=== PATIENT | female | born 1965 | race American Indian/Alaskan Native ===

== ENCOUNTER 2017-03-18 11:57 | Observation (INO) | payer OTHER ==
[2017-03-18 12:33] VITALS: BMI 26.2
--- NOTE | 2017-03-18 13:03 | ED PDOC ---
Arrival/HPI - General Chief Complaint: Syncope Time Seen by Provider: 03/18/17 12:39 Historian: Patient - History of Present Illness Narrative History of Present Illness (Text): 03/18/17 12:59 A 51 year old female, whose past medical history includes hypertension and hyperlipidemia, presents to the emergency department complaining of a syncopal episode prior to arrival. Patient reports while at work she felt lightheaded, which resolved for a few minutes and later returned. She then experienced a syncopal episode that lasted for less than 1 minute. At this time patient feels better. Patient notes a mild headache but denies any fever, chills, nausea, vomiting, abdominal pain, chest pain, shortness of breath or any other complaints. Time/Duration: Prior to Arrival Symptom Course: Improving Quality: Other Context: Work Past Medical History - Provider Review Nursing Documentation Reviewed: Yes - Infectious Disease Hx of Infectious Diseases: None - Cardiac Hx Cardiac Arrhythmia: Yes Hx Hypertension: Yes Hx Internal Defibrillator: Yes Other/Comment: Defibrillator. Cardiomyopathy - Gastrointestinal Hx Gall Bladder Disease: Yes Other/Comment: hernia - Psychiatric Hx Psychophysiologic Disorder: No Hx Depression: No Hx Emotional Abuse: No Hx Physical Abuse: No Hx Substance Use: No - Surgical History Hx Cardiac Catheterization: Yes Hx Cholecystectomy: Yes Other/Comment: DEFIBRILLATOR. "mass removed from chest" - Anesthesia Hx Anesthesia: Yes Hx Anesthesia Reactions: No Hx Malignant Hyperthermia: No - Suicidal Assessment Feels Threatened In Home Enviroment: No Family/Social History - Physician Review Nursing Documentation Reviewed: Yes Family/Social History: No Known Family HX Smoking Status: Never Smoked Hx Alcohol Use: No Hx Substance Use: No Allergies/Home Meds Allergies/Adverse Reactions: Allergies No Known Allergies Allergy (Verified 03/20/15 22:14) Home Medications: Home Meds Medication Instructions Recorded Confirmed Aspirin [Aspir 81] 81 mg PO DAILY 03/05/13 03/18/17 Enalapril Maleate [Enalapril] 20 mg PO DAILY 03/05/13 03/18/17 Losartan [Cozaar] 100 mg PO DAILY 03/20/15 03/18/17 Pantoprazole [Protonix] 40 mg PO DAILY 03/20/15 03/18/17 Furosemide [Lasix] 1 tab PO DAILY 03/18/17 03/18/17 Potassium Chloride [K-Dur 20 mEq 1 tab PO DAILY 03/18/17 03/18/17 ER Tab] Simvastatin [Zocor] 1 tab PO HS 03/18/17 03/18/17 Review of Systems - Physician Review All systems were reviewed & negative as marked: Yes - Review of Systems Constitutional: absent: Fevers, Night Sweats Respiratory: absent: SOB Cardiovascular: Syncope. absent: Chest Pain Gastrointestinal: absent: Abdominal Pain, Nausea, Vomiting Neurological: Headache, Other (Lightheaded) Physical Exam Vital Signs Reviewed: Yes Vital Signs Temp Pulse Resp BP Pulse Ox 03/18/17 17:10 70 17 124/82 100 03/18/17 16:40 66 18 111/68 98 03/18/17 15:19 67 18 109/65 98 03/18/17 13:21 69 18 107/64 98 03/18/17 12:40 98.2 F 73 18 105/61 98 Temperature: Afebrile Blood Pressure: Normal Pulse: Regular Respiratory Rate: Normal Appearance: Positive for: Well-Appearing, Non-Toxic, Comfortable Pain Distress: None Mental Status: Positive for: Alert and Oriented X 3 Finger Stick Blood Glucose: 97 - Systems Exam Head: Present: Atraumatic, Normocephalic Pupils: Present: PERRL Extroacular Muscles: Present: EOMI Conjunctiva: Present: Normal Mouth: Present: Moist Mucous Membranes Neck: Present: Normal Range of Motion Respiratory/Chest: Present: Clear to Auscultation, Good Air Exchange. No: Respiratory Distress, Accessory Muscle Use Cardiovascular: Present: Regular Rate and Rhythm, Normal S1, S2. No: Murmurs Abdomen: Present: Normal Bowel Sounds. No: Tenderness, Distention, Peritoneal Signs Back: Present: Normal Inspection Upper Extremity: Present: Normal Inspection. No: Cyanosis, Edema Lower Extremity: Present: Normal Inspection. No: Edema Neurological: Present: GCS=15, CN II-XII Intact, Speech Normal, Motor Func Grossly Intact, Normal Sensory Function, Normal Cerebellar Funct, Gait Normal, Memory Normal Skin: Present: Warm, Dry, Normal Color. No: Rashes Psychiatric: Present: Alert, Oriented x 3, Normal Insight, Normal Concentration Medical Decision Making ED Course and Treatment: 03/18/17 12:59 Impression: A 51 year old female presents after syncopal episode. Patient notes mild headache. r/o cardiac metabolic, intracrnial etiology Plan: -- Head CT -- Chest xray -- EKG -- Labs -- Urinalysis -- Reassess and disposition Progress Notes: EKG shows NSR at 66 BPM with nonspecific T-wave changes, no prior for comparison. Interpreted by me. Report Date : 03/18/2017 13:35:41 PROCEDURE: CT HEAD WITHOUT CONTRAST. Dictator : Jayro Moseley MD IMPRESSION: Normal CT of the Head. Report Date : 03/18/2017 13:50:54 PROCEDURE: CHEST RADIOGRAPH, 1 VIEW Dictator : Heydi Tejada MD IMPRESSION: No active pulmonary disease. 03/18/17 17:[address] neg. cxr neg. ua neg. noted mild leukoctyosis, suspect inflammatory. noted ekg changes, no previous. mendoza franscico syncope rules positive. needs admission. dr ma requests hospitalist admission. dr moss accepts. - Lab Interpretations Lab Results: 03/18/17 13:26 03/18/17 13:40 Lab Results 03/18/17 13:40: TSH 3rd Generation 1.13 03/18/17 13:40: Triglycerides 105, Cholesterol 194, LDL Cholesterol Direct 131 H , HDL Cholesterol 42 03/18/17 13:40: Sodium 136, Potassium 3.9, Chloride 102, Carbon Dioxide 23, Anion Gap 15, BUN 21, Creatinine 1.0, Est GFR ( Amer) > 60, Est GFR (Non- Af Amer) 59, Random Glucose 98, Calcium 9.2, Magnesium 2.1, Total Bilirubin 0.5 , AST 22, ALT 37, Alkaline Phosphatase 92, Lactate Dehydrogenase 674, Total Creatine Kinase 165, Troponin I < 0.01, Total Protein 7.7, Albumin 4.3, Globulin 3.4, Albumin/Globulin Ratio 1.3 03/18/17 13:26: PT 10.9, INR 1.01, APTT 28.0 03/18/17 13:26: WBC 13.4 H, RBC 5.51, Hgb 15.3, Hct 44.0, MCV 79.9 L, MCH 27.8, MCHC 34.8, RDW 15.3 H, Plt Count 272, MPV 9.8, Gran % 84.3 H, Lymph % (Auto) 8.1 L, [place] % (Auto) 7.2 H, Eos % (Auto) 0.3 L, Baso % (Auto) 0.1, Gran # 11.27 H, Lymph # 1.1 L, [place] # 1.0 H, Eos # 0.0, Baso # 0.01, Neutrophils % (Manual) 88 H, Lymphocytes % (Manual) 10 L, Monocytes % (Manual) 2, Platelet Evaluation Normal, Anisocytosis (manual) Slight 03/18/17 13:23: Urine Color Yellow, Urine Appearance Sl cloudy, Urine pH 6.0, Ur Specific [place] 1.015, Urine Protein Negative, Urine Glucose (UA) Negative, Urine Ketones Negative, Urine Blood Moderate H, Urine Nitrate Negative, Urine Bilirubin Negative, Urine Urobilinogen 0.2, Ur Leukocyte Esterase Negative, Urine RBC 0 - 2, Urine WBC 0 - 2, Ur Epithelial Cells 4 - 5, Urine Bacteria Trace, Urine HCG, Qual Negative I have reviewed the lab results: Yes - RAD Interpretation Radiology Orders: 03/18/17 12:56 CHEST ONE VIEW [RAD] Stat 03/18/17 12:57 HEAD W/O CONTRAST [CT] Stat - Medication Orders Current Medication Orders: Aspirin (Ecotrin) 81 mg PO DAILY LISE Atorvastatin Calcium (Lipitor) 20 mg PO DIN LISE Metoprolol Succinate (Toprol Xl) 50 mg PO DAILY ILSE Pantoprazole Sodium (Protonix Ec Tab) 40 mg PO DAILY LISE Discontinued Medications Iohexol (Omnipaque 240 (50 Ml)) Confirm Administered Dose 50 ml .ROUTE .K-MED ONE Stop: 03/18/17 17:18 - Scribe Statement The provider has reviewed the documentation as recorded by the Kavitha Harvey Provider Scribe Attestation: All medical record entries made by the Scribe were at my direction and personally dictated by me. I have reviewed the chart and agree that the record accurately reflects my personal performance of the history, physical exam, medical decision making, and the department course for this patient. I have also personally directed, reviewed, and agree with the discharge instructions and disposition. Disposition/Present on Arrival - Present on Arrival Any Indicators Present on Arrival: No History of DVT/PE: No History of Uncontrolled Diabetes: No Urinary Catheter: No History of Decub. Ulcer: No History Surgical Site Infection Following: None - Disposition Have Diagnosis and Disposition been Completed?: Yes Diagnosis: Syncope Disposition: HOSPITALIZED Disposition Time: 05:00 Condition: STABLE
[2017-03-18 13:35] LABS: BASO # 0.01 K/mm3 (0.0-2.0); BASO % 0.1 % (0.0-3.0); EOS % 0.3 % (1.5-5.0); GRAN # 11.27 (1.4-6.5); GRAN % 84.3 % (50.0-68.0); LYMPH # 1.1 (1.2-3.4); LYMPH % 8.1 % (22.0-35.0); MEAN CELL VOLUME 79.9 fl (80.0-105.0); MEAN CORPUSCULAR HEMOGLOBIN 27.8 pg (25.0-35.0); MEAN CORPUSCULAR HGB CONC 34.8 g/dl (31.0-37.0); MEAN PLATELET VOLUME 9.8 fl (7.0-11.0); MONO % 7.2 % (1.0-6.0); PLATELET COUNT 272 10^3/uL (120.0-450.0); RED CELL DISTRIBUTION WIDTH 15.3 % (11.5-14.5); WHITE BLOOD COUNT 13.4 10^3/ul (4.5-11.0)
[2017-03-18 13:35] LABS: URINE BILIRUBIN NEGATIVE (NEGATIVE); URINE BLOOD MODERATE (NEGATIVE); URINE GLUCOSE (UA) NEGATIVE (NEGATIVE); URINE KETONE NEGATIVE (NEGATIVE); URINE LEUKOCYTE ESTERASE NEGATIVE Leu/uL (NEGATIVE); URINE PROTEIN NEGATIVE mg/dL (<30 mg/dL); URINE UROBILINOGEN 0.2 E.U./dL (<1 E.U./dL)
--- NOTE | 2017-03-18 13:37 | CT ---
PROCEDURE: CT HEAD WITHOUT CONTRAST. HISTORY: syncope COMPARISON: None available. TECHNIQUE: Axial computed tomography images were obtained through the head/brain without intravenous contrast. Radiation dose: Total exam DLP = 768 mGy-cm. This CT exam was performed using one or more of the following dose reduction techniques: Automated exposure control, adjustment of the mA and/or kV according to patient size, and/or use of iterative reconstruction technique. FINDINGS: HEMORRHAGE: No intracranial hemorrhage. BRAIN: No mass effect or edema. No atrophy or chronic microvascular ischemic changes. VENTRICLES: Unremarkable. No hydrocephalus. CALVARIUM: Unremarkable. PARANASAL SINUSES: Unremarkable as visualized. No significant inflammatory changes. MASTOID AIR CELLS: Unremarkable as visualized. No inflammatory changes. OTHER FINDINGS: None. IMPRESSION: Normal CT of the Head.
[2017-03-18 13:42] LABS: URINE APPEARANCE SL CLOUDY (CLEAR); URINE COLOR YELLOW (YELLOW)
[2017-03-18 13:43] LABS: INR 1.01 (0.93-1.08)
--- NOTE | 2017-03-18 13:52 | RAD ---
PROCEDURE: CHEST RADIOGRAPH, 1 VIEW HISTORY: Syncope COMPARISON: None available. FINDINGS: LUNGS: The lungs are well inflated and clear. PLEURA: No pneumothorax or pleural fluid seen. CARDIOVASCULAR: The heart is normal in size. There is a left-sided dual lead transvenous permanent pacing device. OSSEOUS STRUCTURES: No significant abnormalities. VISUALIZED UPPER ABDOMEN: Normal. OTHER FINDINGS: None. IMPRESSION: No active pulmonary disease.
[2017-03-18 14:03] LABS: URINE BACTERIA TRACE (NEG); URINE RBC 0 - 2 /hpf (0-2); URINE WBC 0 - 2 /hpf (0-6)
[2017-03-18 14:09] LABS: ALB/GLOB RATIO 1.3 (1.1-1.8); ALKALINE PHOSPHATASE 92 U/L (38-133); ALT/SGPT 37 U/L (7-56); AST/SGOT 22 U/L (15-39); BILIRUBIN,TOTAL 0.5 mg/dL (0.2-1.3); BLOOD UREA NITROGEN 21 mg/dL (7-21); CALCIUM 9.2 mg/dL (8.4-10.5); CARBON DIOXIDE 23 mmol/L (21-33); CHLORIDE 102 mmol/L (98-107); GFR AFRICAN-AMERICAN > 60; GLUCOSE,RANDOM 98 mg/dL (70-110); MAGNESIUM 2.1 mg/dL (1.7-2.2); POTASSIUM 3.9 mmol/L (3.6-5.0); SODIUM 136 mmol/L (132-148); TOTAL PROTEIN 7.7 g/dL (5.8-8.3)
[2017-03-18 14:22] LABS: TROPONIN I < 0.01 ng/mL
[2017-03-18 14:45] LABS: NEUTROPHIL 88 % (50.0-70.0)
[2017-03-18 14:46] LABS: ANISOCYTOSIS SLIGHT; PLATELET ESTIMATE NORMAL (NORMAL)
--- NOTE | 2017-03-18 15:27 | CARD ---
APPROVED REPORT EKG Measurement Heart [id number] <Conclusion> Normal sinus rhythm Possible Left atrial enlargement Left ventricular hypertrophy Nonspecific T wave abnormality Abnormal ECG
[2017-03-18 16:19] LABS: CHOLESTEROL 194 mg/dL (130-200)
[2017-03-18] MEDS ORDERED: Iohexol 240 (50 ml) ONE (17:17)
--- NOTE | 2017-03-18 17:36 | CP.PCM.HP ---
History of Present Illness - History of Present Illness History of Present Illness: CC: I passed out at work HPI: Patient is a 51 yo female with past medical hx of cardiomyopathy s/p defibrillator (2008), HTN, HLD presents to the ED for syncopal episode at work. Patient reports that she was feeling diaphoretic this morning with associated generalized abdominal pain and nausea. She ate some potato chips however symptoms did not resolve. She went to the bathroom because she felt like she had to vomit, instead she moved her bowels and returned to work. Shortly after she began to feel lightheaded and passed out. Patient blacked out and fell to the floor for approximately 1 minute but was able to hear her co-workers calling for help. States she is not sure if she hit her head. Patient was brought to the ED by her coworker. Denies headaches, dizziness, chest pain, sob , palpitations, bowel/bladder incontinence, tongue biting. Denies any recent travel or sick contacts. Patient is compliant with her medications however did not take any of her meds this morning. Reports that abdominal pain never completely resolved after Cholecystectomy in 07/2016. Recent CT abd/pelvis done on 01/2017 showed small hiatal hernia, large amount of stool. PCP: Dr Mehta Briquette Maker: Dr Thompson Allergies: NKDA Medications: Metoprolol 50mg QD, ASA 81mg, Lasix 40mg, Enalapril 20mg QD, Losartan/HCTZ 100-25mg, Protonix 40mg, Kcl 20 meq Medical Hx: HTN, HLD, Cardiomyopathy (per the patient, EF 15%) Surgical Hx: Lap martin (07/2016), Defibrillator placement (Medtronic [id number]), Mass removal in neck?, R foot surgery Social Hx: Denies alcohol, tobacco, drug use; works in the kitchen of a daycare Family Hx: Mother (HTN, DM, Heart disease), Father (HTN), Aunt (Breast CA) Present on Admission - Present on Admission Any Indicators Present on Admission: No History of DVT/PE: No History of Uncontrolled Diabetes: No Urinary Catheter: No Decubitus Ulcer Present: No Review of Systems - Review of Systems All systems: reviewed and no additional remarkable complaints except - Constitutional Constitutional: absent: Chills, Fatigue, Fever, Headache, Weakness - EENT Eyes: absent: Blurred Vision, Change in Vision Ears: absent: Decreased Hearing, Abnormal Hearing - Cardiovascular Cardiovascular: Diaphoresis, Lightheadedness. absent: Chest Pain, Dyspnea, Palpitations, Pedal Edema - Respiratory Respiratory: Cough. absent: Dyspnea, Dyspnea on Exertion, Wheezing, Snoring - Gastrointestinal Gastrointestinal: Abdominal Pain, Bloating, Nausea. absent: Constipation, Diarrhea, Vomiting - Genitourinary Genitourinary: absent: Difficulty Urinating, Urinary Incontinence, Urinary Frequency - Musculoskeletal Musculoskeletal: absent: Back Pain, Muscle Weakness, Numbness, Tingling - Integumentary Integumentary: absent: Rash - Neurological Neurological: absent: Abnormal Gait, Numbness, Headaches, Tingling, Weakness - Psychiatric Psychiatric: absent: Anxiety, Depression Past Patient History - Infectious Disease Hx of Infectious Diseases: None - Past Social History Smoking Status: Never Smoked - CARDIAC Hx Cardia Arrhythmia: Yes Hx Hypertension: Yes Hx Internal Defibrillator: Yes Other/Comment: Defibrillator. Cardiomyopathy - GASTROINTESTINAL Hx Gall Bladder Disease: Yes Other/Comment: hernia - PSYCHIATRIC Hx Psychophysiologic Disorder: No Hx Depression: No Hx Emotional Abuse: No Hx Physical Abuse: No Hx Substance Use: No - SURGICAL HISTORY Hx Cardiac Catheterization: Yes Hx Cholecystectomy: Yes Other/Comment: DEFIBRILLATOR. "mass removed from chest" - ANESTHESIA Hx Anesthesia: Yes Hx Anesthesia Reactions: No Hx Malignant Hyperthermia: No Meds Allergies/Adverse Reactions: Allergies Allergy/AdvReac Type Severity Reaction Status Date / Time No Known Allergies Allergy Verified 03/20/15 22:14 Physical Exam - Constitutional Appears: Well, No Acute Distress - Head Exam Head Exam: ATRAUMATIC, NORMAL INSPECTION - Eye Exam Eye Exam: EOMI, Normal appearance Pupil Exam: NORMAL ACCOMODATION - ENT Exam ENT Exam: Mucous Membranes Moist - Neck Exam Neck exam: Positive for: Full Rom, Normal Inspection Additional comments: No JVD - Respiratory Exam Respiratory Exam: Clear to Auscultation Bilateral, NORMAL BREATHING PATTERN. absent: Rales, Rhonchi, Wheezes - Cardiovascular Exam Cardiovascular Exam: REGULAR RHYTHM, +S1, +S2. absent: Diastolic murmur, Systolic Murmur - GI/Abdominal Exam GI & Abdominal Exam: Normal Bowel Sounds, Soft. absent: Distended, Firm, Guarding, Rebound, Rigid, Tenderness - Rectal Exam Rectal Exam: Deferred - Extremities Exam Extremities exam: Positive for: full ROM, normal capillary refill, normal inspection, pedal pulses present. Negative for: calf tenderness, pedal edema - Back Exam Back exam: NORMAL INSPECTION - Neurological Exam Neurological exam: Alert, CN II-XII Intact, Oriented x3 - Psychiatric Exam Psychiatric exam: Normal Affect, Normal Mood - Skin Skin Exam: Dry, Normal Color, Warm Results - Vital Signs Recent Vital Signs: Last Vital Signs Temp 98.2 F 03/18/17 12:40 Pulse 70 03/18/17 17:10 Resp 17 03/18/17 17:10 BP 124/82 03/18/17 17:10 Pulse Ox 100 03/18/17 17:10 - Labs Result Diagrams: 03/18/17 13:26 03/18/17 13:40 Assessment & Plan - Assessment and Plan (Free Text) Assessment: 51 yo female with pmhx of cardiomyopathy s/p pacemaker, HTN, HLD presents to [facility] [place] after witnessed syncopal episode at work. CT head was negative.EKG showing NSR with left atria enlargement. Plan: 1. Syncope likely vasovagal, rule out cardiac causes -Admit and monitor on Telemetry -CT head showing no acute findings -EKG: NSR 66 bpm, left atrial enlargement -Troponin negative x 1, trend Troponins -F/U am Labs -Echo ordered, no previous echo -Orthostatic BPs -Pt has a defibrillator (Medtronic [id number]), will need to be interrogated -Cardiology consulted, f/u recommendations 2. Persistent Abdominal Pain (s/p Cholecystectomy) -CT abd/pelvis from 02/08 showed small hiatal hernia and large amount of stool -F/U repear CT abd/pelvis with PO contrast -GI consulted, f/u recommendations 3. Cardiomyopathy -Per the patient, EF 15% -Pt not aware of the cause of cardiomyopathy -Will continue Metoprolol 50mg daily -Continue Lasix 40mg daily -ASA 81mg daily 4. Leukocytosis -WBC 13.4 on admission, afebrile, VSS -No active signs of infection -CXR: no active pulmoney disease -UA: moderate blood -Continue to monitor at this time 4. Hx of Hypertension -Continue home BP medications with holding parameters 5. Hx of HLD -F/U lipid panel -Atorvastatin 20mg PO daily 6. GI/DVT ppx -Protonix 40mg daily -SCDs Bertha Soares, PGY-1
[2017-03-18] MEDS ORDERED: Pneumococcal 23-Valent Vaccine IM ONE (19:26)
[2017-03-19 05:58] VITALS: O2SAT 99
--- NOTE | 2017-03-19 06:13 | CON ---
DATE: 03/18/2017 REASON FOR CONSULTATION: Syncope. BRIEF CLINICAL HISTORY: A 51-year-old female with past medical history significant for hypertension many years, history of nonobstructive coronary artery disease status post cardiac catheterization in 2008, history of AICD, defibrillator placed on 12/13/2009 at [facility] who was at work. She felt nauseating tendency and then she felt crampy abdomen, went to the bathroom to move her bowel when came back to work again after half-an hour she felt another sweating diaphoresis. No chest pain and then she felt that she was going to pass out. She asked a coworker to help to let her sit, by the time she pulled the chair, she passed out and found herself on the floor. Denies any chest pain, shortness of breath. Denies any palpitations. PAST MEDICAL HISTORY: Significant for hypertension, hyperlipidemia, normal coronaries status post cardiac catheterization in 2008, history of AICD placed on 12/13/2009. PAST SURGICAL HISTORY: Significant for cholecystectomy, removal of the toe, removal of the gland from the throat, history of AICD on 12/13/2009, and history of colonoscopy. FAMILY HISTORY: Significant for coronary artery disease in father, diabetes in mother. ALLERGIES: NO KNOWN DRUG ALLERGIES. CURRENT MEDICATIONS: Lasix 1 tablet daily, enalapril 20 mg daily, aspirin 81 mg daily, simvastatin 1 mg daily, potassium chloride 1 tablet daily, 40 mg daily, losartan 100 mg daily. REVIEW OF SYSTEMS: As per HPI. No history of chest pain, shortness of breath, or any palpitations. PHYSICAL EXAMINATION: As follows: VITAL SIGNS: Temperature is afebrile, heart rate is 60, and blood pressure is 105/61. HEENT: PERRLA. Extraocular muscles intact. NECK: Supple. No carotid bruits or thyromegaly. CHEST: Clear to auscultation. HEART: S1 and S2 regular. ABDOMEN: Soft. EXTREMITIES: Clubbing and cyanosis negative. LABORATORY DATA: Blood workup shows; WBC 13.5, hemoglobin 15.3, hematocrit 44.0, platelet count 272. Chemistries showed sodium of 132, potassium 3.9, chloride 102, carbon dioxide 23, anion gap of 15, BUN 21, creatinine 1.0. IMPRESSION: Syncope, rule out arrhythmia; leukocytosis, rule out infection. We will interrogate pacemaker rule out arrhythmia, ventricular tachycardia, ventricular fibrillation, check for orthostatic hypotension, and automatic implantable cardioverter-defibrillator interrogation. We will get lipid profile, TSH, blood culture and check for orthostasis. Further recommendations depending on hospital course. We will follow with you. I will get echo to rule out structural heart disease. Follow up CPK, troponin. We will follow with you. Thank you Dr. Prema Desai for providing us the opportunity in taking care of the patient, Sharon. The patient has a beef boner Dr. Dexter Tatum, and upon discharge, the patient will follow with him. Fady Crum MD
[2017-03-19 07:48] LABS: BASO # 0.01 K/mm3 (0.0-2.0); BASO % 0.1 % (0.0-3.0); EOS # 0.1 (0.0-0.7); EOS % 1.4 % (1.5-5.0); GRAN # 5.66 (1.4-6.5); GRAN % 72.1 % (50.0-68.0); HEMATOCRIT 40.8 % (36.0-48.0); LYMPH # 1.4 (1.2-3.4); LYMPH % 17.9 % (22.0-35.0); MEAN CELL VOLUME 79.8 fl (80.0-105.0); MEAN CORPUSCULAR HGB CONC 33.8 g/dl (31.0-37.0); MEAN PLATELET VOLUME 9.7 fl (7.0-11.0); MONO # 0.7 (0.1-0.6); MONO % 8.5 % (1.0-6.0); RED CELL DISTRIBUTION WIDTH 15.2 % (11.5-14.5); WHITE BLOOD COUNT 7.9 10^3/ul (4.5-11.0)
[2017-03-19 08:00] LABS: ALB/GLOB RATIO 1.2 (1.1-1.8); ALKALINE PHOSPHATASE 80 U/L (38-133); ALT/SGPT 36 U/L (7-56); AST/SGOT 21 U/L (15-39); BILIRUBIN,TOTAL 0.7 mg/dL (0.2-1.3); BLOOD UREA NITROGEN 14 mg/dL (7-21); CALCIUM 8.8 mg/dL (8.4-10.5); CARBON DIOXIDE 29 mmol/L (21-33); CHLORIDE 101 mmol/L (98-107); GFR AFRICAN-AMERICAN > 60; GLUCOSE,RANDOM 107 mg/dL (70-110); MAGNESIUM 2.1 mg/dL (1.7-2.2); PHOSPHOROUS 3.6 mg/dL (2.5-4.5); POTASSIUM 4.1 mmol/L (3.6-5.0); SODIUM 138 mmol/L (132-148); TOTAL PROTEIN 7.1 g/dL (5.8-8.3)
[2017-03-19 08:35] LABS: TROPONIN I < 0.01 ng/mL
[2017-03-19] MEDS ORDERED: Metoprolol Succinate 50 mg XL Tab PO SCH (10:00)
[2017-03-19] MEDS ORDERED: Pantoprazole 40 mg EC Tab PO SCH (10:00)
[2017-03-19] MEDS ORDERED: POLYETHYLENE GLYCOL 3350 17 GM/Dose PACKET PO SCH (11:30)
[2017-03-19 12:52] VITALS: RESP 21
--- NOTE | 2017-03-19 13:07 | CP.PCM.DIS ---
Provider - Provider Date of Admission: 03/18/17 15:38 Attending physician: Prema Desai MD Primary care physician: Dalton Mehta MD Consults: Cardio: Dr Crum GI: Nino Time Spent in preparation of Discharge (in minutes): 31 Hospital Course - Lab Results Lab Results: Most Recent Lab Values WBC 7.9 10^3/ul (4.5-11.0) D 03/19/17 07:30 RBC 5.11 10^6/uL (3.5-6.1) 03/19/17 07:30 Hgb 13.8 g/dL (12.0-16.0) 03/19/17 07:30 Hct 40.8 % (36.0-48.0) 03/19/17 07:30 MCV 79.8 fl (80.0-105.0) L 03/19/17 07:30 MCH 27.0 pg (25.0-35.0) 03/19/17 07:30 MCHC 33.8 g/dl (31.0-37.0) 03/19/17 07:30 RDW 15.2 % (11.5-14.5) H 03/19/17 07:30 Plt Count 241 10^3/uL (120.0-450.0) 03/19/17 07:30 MPV 9.7 fl (7.0-11.0) 03/19/17 07:30 Gran % 72.1 % (50.0-68.0) H 03/19/17 07:30 Lymph % (Auto) 17.9 % (22.0-35.0) L 03/19/17 07:30 [place] % (Auto) 8.5 % (1.0-6.0) H 03/19/17 07:30 Eos % (Auto) 1.4 % (1.5-5.0) L 03/19/17 07:30 Baso % (Auto) 0.1 % (0.0-3.0) 03/19/17 07:30 Gran # 5.66 (1.4-6.5) 03/19/17 07:30 Lymph # 1.4 (1.2-3.4) 03/19/17 07:30 [place] # 0.7 (0.1-0.6) H 03/19/17 07:30 Eos # 0.1 (0.0-0.7) 03/19/17 07:30 Baso # 0.01 K/mm3 (0.0-2.0) 03/19/17 07:30 Neutrophils % (Manual) 88 % (50.0-70.0) H 03/18/17 13:26 Lymphocytes % (Manual) 10 % (22.0-35.0) L 03/18/17 13:26 Monocytes % (Manual) 2 % (1.0-6.0) 03/18/17 13:26 Platelet Evaluation Normal (NORMAL) 03/18/17 13:26 Anisocytosis (manual) Slight 03/18/17 13:26 PT 10.9 Seconds (9.9-11.8) 03/18/17 13: INR 1.01 (0.93-1.08) 03/18/17 13:26 APTT 28.0 Seconds (23.7-30.8) 03/18/17 13:26 Sodium 138 mmol/L (132-148) 03/19/17 07:30 Potassium 4.1 mmol/L (3.6-5.0) 03/19/17 07:30 Chloride 101 mmol/L (98-107) 03/19/17 07:30 Carbon Dioxide 29 mmol/L (21-33) 03/19/17 07:30 Anion Gap 12 (10-20) 03/19/17 07:30 BUN 14 mg/dL (7-21) 03/19/17 07:30 Creatinine 0.8 mg/dL (0.5-1.4) 03/19/17 07:30 Est GFR ( Amer) > 60 03/19/17 07:30 Est GFR (Non-Af Amer) > 60 03/19/17 07:30 Random Glucose 107 mg/dL (70-110) 03/19/17 07:30 Hemoglobin A1c 5.9 % (4.2-6.5) 03/18/17 13:26 Calcium 8.8 mg/dL (8.4-10.5) 03/19/17 07:30 Phosphorus 3.6 mg/dL (2.5-4.5) 03/19/17 07:30 Magnesium 2.1 mg/dL (1.7-2.2) 03/19/17 07:30 Total Bilirubin 0.7 mg/dL (0.2-1.3) 03/19/17 07:30 AST 21 U/L (15-39) 03/19/17 07:30 ALT 36 U/L (7-56) 03/19/17 07:30 Alkaline Phosphatase 80 U/L (38-133) 03/19/17 07:30 Lactate Dehydrogenase 588 U/L (333-699) 03/19/17 07:30 Total Creatine Kinase 138 U/L (35-230) 03/19/17 07:30 Troponin I < 0.01 ng/mL 03/19/17 11:30 Total Protein 7.1 g/dL (5.8-8.3) 03/19/17 07:30 Albumin 3.8 g/dL (3.0-4.8) 03/19/17 07:30 Globulin 3.2 gm/dL 03/19/17 07:30 Albumin/Globulin Ratio 1.2 (1.1-1.8) 03/19/17 07:30 Triglycerides 105 mg/dL (35-160) 03/18/17 13:40 Cholesterol 194 mg/dL (130-200) 03/18/17 13:40 LDL Cholesterol Direct 131 mg/dL (0-129) H 03/18/17 13:40 HDL Cholesterol 42 mg/dL (29-60) 03/18/17 13:40 TSH 3rd Generation 1.13 mIU/mL (0.46-4.68) 03/18/17 13:40 Urine Color Yellow (YELLOW) 03/18/17 13:23 Urine Appearance Sl cloudy (CLEAR) 03/18/17 13:23 Urine pH 6.0 (4.7-8.0) 03/18/17 13:23 Ur Specific [place] 1.015 (1.005-1.035) 03/18/17 13:23 Urine Protein Negative mg/dL (<30 mg/dL) 03/18/17 13:23 Urine Glucose (UA) Negative mg/dL (NEGATIVE) 03/18/17 13:23 Urine Ketones Negative mg/dL (NEGATIVE) 03/18/17 13:23 Urine Blood Moderate (NEGATIVE) H 03/18/17 13:23 Urine Nitrate Negative (NEGATIVE) 03/18/17 13:23 Urine Bilirubin Negative (NEGATIVE) 03/18/17 13:23 Urine Urobilinogen 0.2 E.U./dL (<1 E.U./dL) 03/18/17 13:23 Ur Leukocyte Esterase Negative [place]/uL (NEGATIVE) 03/18/17 13:23 Urine RBC 0 - 2 /hpf (0-2) 03/18/17 13:23 Urine WBC 0 - 2 /hpf (0-6) 03/18/17 13:23 Ur Epithelial Cells 4 - 5 /hpf (0-5) 03/18/17 13:23 Urine Bacteria Trace (NEG) 03/18/17 13:23 Urine HCG, Qual Negative (NEGATIVE) 03/18/17 13:23 - Hospital Course Hospital Course: Patient is a 51 yo female with past medical hx of cardiomyopathy s/p defibrillator (2008), HTN, HLD presents to the ED for syncopal episode at work. Patient reports that she was feeling diaphoretic this morning with associated generalized abdominal pain and nausea. She ate some potato chips however symptoms did not resolve. She went to the bathroom because she felt like she had to vomit, instead she moved her bowels and returned to work. Shortly after she began to feel lightheaded and passed out. Patient blacked out and fell to the floor for approximately 1 minute but was able to hear her co-workers calling for help. States she is not sure if she hit her head. Patient was brought to the ED by her coworker. Denies headaches, dizziness, chest pain, sob , palpitations, bowel/bladder incontinence, tongue biting. Denies any recent travel or sick contacts. Patient is compliant with her medications however did not take any of her meds this morning. Reports that abdominal pain never completely resolved after Cholecystectomy in 07/2016. Recent CT abd/pelvis done on 01/2017 showed small hiatal hernia, large amount of stool. Patient was admitted and monitored on telemetry. EKG showing NSR with left atria enlargement. Orthostatics were negative. Cardiology was consulted and on the case. During admission, patients defibrillator was interrogated, no cardiac events were found. Troponins were negative x 3, ACS was ruled out. Echo was completed, official read is pending. CT abd/pelvis was performed, showing moderate amount of stool, no acute findings noted. Patient was started on Miralax. GI was consulted however the patient was not evaluated by GI during this hospital stay. Patient to follow up with GI as an outpatient. On admission , patient was found to have a leukocytosis, WBC 13.4, there were no active signs of infection. Blood cultures were drawn, results pending. Leukocytosis subsequently resolved. On day of discharge, patient was doing well, ambulating and tolerating diet. Diet was advanced to heart healthy. Syncope likely vasovagal. Patient was medically stable, and instructed to stay hydrated. Patient to follow up with PMD within 1 week and continue home medications. All questions and concerns addressed. Discharge Exam - Head Exam Head Exam: ATRAUMATIC, NORMAL INSPECTION - Eye Exam Eye Exam: EOMI, Normal appearance Pupil Exam: NORMAL ACCOMODATION - ENT Exam ENT Exam: Mucous Membranes Moist - Neck Exam Neck exam: Full Rom - Respiratory Exam Respiratory Exam: Clear to PA & Lateral, NORMAL BREATHING PATTERN. absent: Rales, Rhonchi, Wheezes, Respiratory Distress - Cardiovascular Exam Cardiovascular Exam: REGULAR RHYTHM, +S1, +S2. absent: Diastolic murmur, JVD, Systolic Murmur - GI/Abdominal Exam GI & Abdominal Exam: Normal Bowel Sounds, Soft. absent: Guarding, Rebound, Rigid, Tenderness - Extremities Exam Extremities exam: normal capillary refill, normal inspection, pedal pulses present - Back Exam Back exam: NORMAL INSPECTION - Neurological Exam Neurological exam: Alert, CN II-XII Intact, Normal Gait, Oriented x3 - Psychiatric Exam Psychiatric exam: Normal Affect, Normal Mood - Skin Skin Exam: Normal Color, Warm Discharge Plan - Discharge Medications Prescriptions: Losartan [Cozaar] 50 mg PO DAILY #30 tab - Follow Up Plan Condition: STABLE Disposition: HOME/ ROUTINE Instructions: Dehydration (DC), Heart Healthy Diet (DC), Syncope (DC) Additional Instructions: 1. Follow up with PMD within 1 week. 2. Maintain hydration. 3. Continue home medications. Referrals: Dalton Mehta MD [Primary Care Provider] -
--- NOTE | 2017-03-19 13:33 | PN ---
DATE: REASON FOR CONSULTATION: Follow up syncope. SUBJECTIVE: The patient is lying flat, has interrogation of AICD done. OBJECTIVE: GENERAL: Lying flat in the bed. Not in apparent distress. No dizziness. VITAL SIGNS: Temperature afebrile, heart rate 74, blood pressure 104/76. HEENT: PERRLA. Extraocular muscles intact. NECK: Supple. No carotid bruits or thyromegaly. CHEST: Clear to auscultation. HEART: S1 and S2 regular. ABDOMEN: Soft. EXTREMITIES: Clubbing and cyanosis negative. LABORATORY DATA: Blood workup showed WBC 4.9, hemoglobin 13, hematocrit 40.8, platelet count 241. Chemistry showed sodium 130, potassium 4.0, chloride 101, carbon dioxide 29, anion gap of 4, BUN 14, creatinine 0.1, troponin 0.01 negative, TSH 1.13, triglycerides 105, cholesterol 194, LDL 131, HDL 42. IMPRESSION: A 51-year-old female with past medical history of obesity, hypertension for many years, history of nonischemic cardiomyopathy status post cardiac cath in 2008, is status post automatic implantable cardioverter defibrillator in [address] [employer] [address] [facility], [employer] Dr. Naif Sauceda, being followed by Dr. Rc Renteria cardiology who was at work yesterday, admitted with syncopal episode. So far, no evidence of acute [place]. This morning, patient underwent AICD interrogation that showed no evidence of arrhythmia noted. No shows the elevation that means fluid status from congestive heart failure is a little bit elevated twice in November and December, but so far no malfunctioning of the AICD or no evidence of arrhythmia noted, so far no evidence of acute coronary syndrome. RECOMMENDATIONS: We will check orthostasis. If orthostasis is negative, we will discharge the patient. Continue metoprolol, continue atorvastatin, continue aspirin, resume back Lasix 40 mg daily. We will follow up with you. Thank you Dr. Melo for providing us the opportunity in taking care of the patient, Luis Eduardo Cheng. Once the orthostasis change was done and echo was done, then patient can be discharged and we will follow with you. Fady Crmu MD
--- NOTE | 2017-03-19 15:04 | CT ---
PROCEDURE: CT Abdomen and Pelvis without intravenous contrast HISTORY: Abdominal pain COMPARISON: None. TECHNIQUE: Without contrast.. Contrast Dose: Radiation dose: Total exam DLP = 1293 mGy-cm. This CT exam was performed using one or more of the following dose reduction techniques: Automated exposure control, adjustment of the mA and/or kV according to patient size, and/or use of iterative reconstruction technique. FINDINGS: LOWER THORAX: Unremarkable. LIVER: Unremarkable. No gross lesion or ductal dilatation. GALLBLADDER AND BILE DUCTS: Gallbladder removed PANCREAS: Unremarkable. No gross lesion or ductal dilatation. SPLEEN: Unremarkable. ADRENALS: Unremarkable. No mass. KIDNEYS AND URETERS: Unremarkable. No hydronephrosis. No solid mass. VASCULATURE: Unremarkable. No aortic aneurysm. BOWEL: Unremarkable. No obstruction. No gross mural thickening. APPENDIX: Unremarkable. Normal appendix. PERITONEUM: Unremarkable. No free fluid. No free air. LYMPH NODES: Unremarkable. No enlarged lymph nodes. BLADDER: Unremarkable. REPRODUCTIVE: Unremarkable. BONES: No acute fracture. OTHER FINDINGS: None. IMPRESSION: Unremarkable non contrast enhanced CT of the abdomen and pelvis.
[2017-03-19 17:35] VITALS: BP 127/59; PULSE 63; TEMP 97
--- NOTE | 2017-03-20 09:22 | CARD ---
APPROVED REPORT EXAM: Two-dimensional and M-mode echocardiogram with Doppler and color Doppler. INDICATION Syncope CMP 2D DIMENSIONS Left Atrium (2D)4.7 (1.6-4.0cm)IVSd1.2 (0.7-1.1cm) LVDd5.3 (3.9-5.9cm)PWd1.3 (0.7-1.1cm) LVDs4.7 (2.5-4.0cm)FS (%) 12.6 % LVEF (%)27.2 (>50%) M-Mode DIMENSIONS Aortic Root2.90 (2.2-3.7cm)Aortic Cusp Exc.1.90 (1.5-2.0cm) Aortic Valve AoV Peak Zcqutulf862.0cm/Iggy Peak GR.9mmHg Mitral Valve MV E Mtkerlsg98.9cm/sMV A Hmuisvpw66.0cm/sE/A ratio0.7 TDI Lateral E' Peak V5.46cm/sMedial E' Peak V3.90cm/sE/Lateral E'10.1 E/Medial E'14.1 Pulmonary Valve PV Peak Fnvvwlcr83.1cm/sPV Peak Grad.1mmHg Tricuspid Valve TR Peak Mnmiyzhj335he/sRAP HQCDGGBF26fqSoXZ Peak Gr.30mmHg [id number] LEFT VENTRICLE The Left Ventricle is borderline dilated. There is mild concentric left ventricular hypertrophy. The systolic function is moderately to severely impaired.EF-25% There ismoderate to severe global hypokinesis of the left ventricle. Transmitral Doppler flow pattern is Grade III-reversible restrictive diastolic dysfunction. No left ventricle thrombus noted on this study. There is no ventricular septal defect visualized. There is no left ventricular aneurysm. There is no mass noted in the left ventricle. RIGHT VENTRICLE The right ventricle is normal size. There is normal right ventricular wall thickness. The right ventricular systolic function is normal. There is a pacemaker lead in the right ventricle. ATRIA The left atrium is mildly dilated. The right atrium is mildly dilated. There is a catheter/pacemaker lead seen in the right atrium. The interatrial septum is intact with no evidence for an atrial septal defect. AORTIC VALVE The aortic valve is thickened but opens well. No aortic regurgitation is present. There is no aortic valvular stenosis. There is no aortic valvular vegetation. MITRAL VALVE The mitral valve is thickened but opens well. Mitral regurgitation is trace. There is no mitral valve stenosis. There is no evidence of mitral valve prolapse. TRICUSPID VALVE The tricuspid valve leaflets are thickened , but open well. There is mild tricuspid regurgitation.RVSP-40 mmofg There is no tricuspid valve stenosis. There is no tricuspid valve prolapse or vegetation. PULMONIC VALVE The pulmonary valve is normal in structure. There is trace to mild pulmonic valvular regurgitation. There is no pulmonic valvular stenosis. GREAT VESSELS The aortic root is normal in size. The ascending aorta is normal in size. The pulmonary artery is normal. The IVC is normal in size and collapses >50% with inspiration. PERICARDIAL EFFUSION There is no pleural effusion. There is no pericardial effusion. <Conclusion> The Left Ventricle is borderline dilated. There is mild concentric left ventricular hypertrophy. The systolic function is moderately to severely impaired.EF-25% Mitral regurgitation is trace. There is mild tricuspid regurgitation.RVSP-40 mmofg There is a pacemaker lead in the right ventricle. There is no pericardial effusion.
[2017-03-20] MEDS ORDERED: Potassium Chloride 20 mEq ER Tab PO SCH (10:00)
== END 2017-03-19 17:52 | disposition home or self-care (01) ==
LOC: ED 11:57 → INTOOBSV 15:38 → ERH 15:38 → 2RSO 18:23
PROVIDERS: ADMIT Hospitalist; ATTEND Hospitalist
DX: R55 Syncope and collapse (principal); E78.5 Hyperlipidemia, unspecified; I10 Essential (primary) hypertension; I42.9 Cardiomyopathy, unspecified; K44.9 Diaphragmatic hernia without obstruction or gangrene; I25.10 Atherosclerotic heart disease of native coronary artery without angina pectoris; E66.9 Obesity, unspecified; Z91.81 History of falling; Z95.810 Presence of automatic (implantable) cardiac defibrillator; Z90.49 Acquired absence of other specified parts of digestive tract
CPT/HCPCS: 36415; 70450; 71010; 74176; 80053; 80061; 81001; 82550; 82948; 83036; 83615; 83735; 84100; 84443; 84484; 84703; 85025; 85610; 85730; 87040; 93005; 93306; 99285; G0378; Q9966

== ENCOUNTER 2017-07-01 15:43 | Emergency (ER) | payer MEDICAID, OTHER ==
[2017-07-01 15:43] VITALS: BMI 26.2
[2017-07-01 16:21] VITALS: TEMP 98
--- NOTE | 2017-07-01 16:53 | ED PDOC ---
Arrival/HPI - General Chief Complaint: Flu-like Symptoms Time Seen by Provider: 07/01/17 15:56 Historian: Patient - History of Present Illness Narrative History of Present Illness (Text): 07/01/17 17:01 52 yo F w/ PMH of HTN and high cholesterol presents c/o 5 days of feeling fatigue, bodyaches, dry cough and sore throat. Denies any fevers, chills, SOB, CP, N/V, recent travel, sick contacts, rash. Took dayquil yesterday with some improvement. Has no additional complaints. Reports not taking the flu shot this season. PMD none Past Medical History - Provider Review Nursing Documentation Reviewed: Yes - Infectious Disease Hx of Infectious Diseases: None - Cardiac Hx Cardiac Arrhythmia: Yes Hx Hypertension: Yes Hx Internal Defibrillator: Yes Other/Comment: Defibrillator. Cardiomyopathy - Pulmonary Hx Asthma: Yes (as a child) - HEENT Hx HEENT Disorder: Yes (eyeglasses) - Integumentary Other/Comment: small scar center of chest between breast from benign mass removal - Musculoskeletal/Rheumatological Hx Back Pain: Yes Hx Degenerative Joint Disease: Yes (mild) Hx Falls: No Other/Comment: disc narrowing L5 S1 - Gastrointestinal Hx Gall Bladder Disease: Yes Other/Comment: hernia - Genitourinary/Gynecological Other/Comment: r adnexal cyst 2.4 cm - Psychiatric Hx Psychophysiologic Disorder: No Hx Depression: No Hx Emotional Abuse: No Hx Physical Abuse: No Hx Substance Use: No - Surgical History Hx Cardiac Catheterization: Yes Hx Cholecystectomy: Yes Other/Comment: DEFIBRILLATOR. "mass removed from chest" - Anesthesia Hx Anesthesia: Yes Hx Anesthesia Reactions: No Hx Malignant Hyperthermia: No - Suicidal Assessment Feels Threatened In Home Enviroment: No Family/Social History - Physician Review Nursing Documentation Reviewed: Yes Family/Social History: Unknown Family HX Smoking Status: Never Smoked Hx Alcohol Use: No Hx Substance Use: No Allergies/Home Meds Allergies/Adverse Reactions: Allergies No Known Allergies Allergy (Verified 03/20/15 22:14) Home Medications: Home Meds Medication Instructions Recorded Confirmed Aspirin [Aspir 81] 81 mg PO DAILY 03/05/13 03/18/17 Pantoprazole [Protonix] 40 mg PO DAILY 03/20/15 03/18/17 Furosemide [Lasix] 1 tab PO DAILY 03/18/17 03/18/17 Potassium Chloride [K-Dur 20 mEq 1 tab PO DAILY 03/18/17 03/18/17 ER Tab] Simvastatin [Zocor] 1 tab PO HS 03/18/17 03/18/17 Review of Systems - Review of Systems Constitutional: Fatigue. absent: Weight Change, Fevers Respiratory: Cough. absent: SOB, Sputum, Wheezing Cardiovascular: absent: Chest Pain, Palpitations, Edema Gastrointestinal: absent: Abdominal Pain, Nausea, Vomiting Genitourinary Female: absent: Dysuria, Frequency, Hematuria Musculoskeletal: Arthralgias, Myalgias. absent: Back Pain, Neck Pain Skin: absent: Rash, Pruritis, Skin Lesions Neurological: absent: Dizziness, Focal Weakness Physical Exam - Physical Exam Narrative Physical Exam (Text): 07/01/17 17:06 GENERAL APPEARANCE: Patient is awake, alert, oriented x 3, in no acute distress. SKIN: Warm, dry; (-) cyanosis, (-) rash. (-) Decubitus Ulcer EYES: (-) conjunctival pallor, (-) scleral icterus, (-) conjunctival hemorrhage. ENMT: Mucous membranes moist. TMs: (-) erythema. Airway patent: (-) stridor. Pharynx: (-) erythema, (-) exudate. NECK: (-) tenderness, (-) stiffness, (-) meningismus, (-) lymphadenopathy. CHEST AND RESPIRATORY: (-) accessory muscle use. Lungs: (-) rales, (-) rhonchi, (-) wheezes, (-) rub; breath sounds equal bilaterally. HEART AND CARDIOVASCULAR: (-) irregularity; (-) murmur, (-) gallop, (-) rub. ABDOMEN AND GI: Soft; (-) tenderness, (-) guarding; (-) organomegaly; (-) mass ; (-) CVA tenderness. EXTREMITIES: (-) deformity; (-) cellulitis, (-) lymphangitis; (-) subungual hemorrhage; (-) edema. NEURO AND PSYCH: Mental status as above; (-) focal findings. Vital Signs Temp Pulse Resp BP Pulse Ox 07/01/17 17:30 83 18 142/73 99 07/01/17 15:43 98 F 84 16 152/90 H 97 Medical Decision Making ED Course and Treatment: 12/04/17 17:03 52 yo F w/ PMH of HTN and high cholesterol presents c/o 5 days of feeling fatigue, bodyaches, dry cough and sore throat. EKG : NSR at 81 bpm, LAD, new +prolonged Qt interval of 504 ms, with T wave inversion in leads V4-V6 - which is not new compared to prior study on 03/18/17, as read by ER MD and PA. Dx of viral illness d/w the patient. Patient notified of EKG changes of prolonged QT interval and advised of the need for further evaluation, follow up and repeat EKG as an outpatient in 2-3 days without fail. Otherwise instructed to follow up with primary care physician or the clinic in 1-2 days without fail. Advised to take medication as prescribed. Return to the emergency room at any time for any new or worsening symptoms. Patient states she fully agrees with and understands discharge instructions. States that she agrees with the plan and disposition. Verbalized and repeated discharge instructions and plan. I have given the patient opportunity to ask any additional questions. - PA / TECHNICAL SERVICES LIBRARIAN / Resident Statement MD/DO has reviewed & agrees with the documentation as recorded. Disposition/Present on Arrival - Present on Arrival Any Indicators Present on Arrival: No History of DVT/PE: No History of Uncontrolled Diabetes: No Urinary Catheter: No History of Decub. Ulcer: No History Surgical Site Infection Following: None - Disposition Have Diagnosis and Disposition been Completed?: Yes Diagnosis: Cough, Viral illness Disposition: HOME/ ROUTINE Disposition Time: 16:40 Patient Plan: Discharge Condition: STABLE Discharge Instructions (ExitCare): Viral Syndrome (ED) Print Language: ARMENIAN Additional Instructions: Take your medication as prescribed and follow up with your doctor or the clinic in 2 days without fail. Return to the ER at any time for any new or worsening symptoms. Your EKG shows a new change of prolonged QT interval, please follow this up with your doctor or the clinic Prescriptions: Albuterol 0.083% [Albuterol Sulfate 3 Ml] 3 ml IH Q4 #40 neb Guaifenesin 400 mg PO QID #20 tablet Referrals: PCP,NO [Primary Care Provider] - [place] up [place] [facility] [place] [facility] [place] - Follow up with primary Forms: [employer] (Panamanian), WORK NOTE
[2017-07-01 17:32] VITALS: BP 142/73; PULSE 83; RESP 18; O2SAT 99
--- NOTE | 2017-07-01 18:00 | CARD ---
APPROVED REPORT EKG Measurement Heart [id number] <Conclusion> Normal sinus rhythm Left axis deviation Voltage criteria for left ventricular hypertrophy T wave abnormality, consider lateral ischemia Prolonged QT Abnormal ECG
== END 2017-07-01 17:33 | disposition home or self-care (01) ==
LOC: ED 15:43
DX: B34.9 Viral infection, unspecified (principal); R05 Cough

== ENCOUNTER 2017-10-27 15:19 | Emergency (ER) | payer OTHER ==
[2017-10-27 15:19] VITALS: BMI 26.2
[2017-10-27 16:01] VITALS: BP 146/87; PULSE 85; RESP 18; TEMP 98.5; O2SAT 100
--- NOTE | 2017-10-27 16:44 | ED PDOC ---
Arrival/HPI - General Chief Complaint: Lower Extremity Problem/Injury Time Seen by Provider: 10/27/17 16:35 Historian: Patient - History of Present Illness Narrative History of Present Illness (Text): 10/27/17 16:36 This 52 yo female with pmh cardiomyopathy, hyperlipidemia, HTN s/p defibrillator placement, presents to this ED c/o sinuses pressure, nasal congestion, ear pain x 2 days. Patient also stated since she is here in ED, she would like to tell me about intermittent right knee pain x 1 year. Patient stated she had a knee x-rays in the past for same complain. Patient denies knee trauma, leg swelling, calf pain, recent travel, sick contact, sob, cp, fever, abdominal pain, dizziness, jaw pain, palpitation, AVITIA, back pain, neck pain, or abnormal gait. Patient is obese with BMI 44.8 Time/Duration: Other (see hpi) Context: Home Past Medical History - Provider Review Nursing Documentation Reviewed: Yes - Infectious Disease Hx of Infectious Diseases: None - Reproductive Menopause: No - Cardiac Hx Cardiac Arrhythmia: Yes Hx Hypertension: Yes Hx Internal Defibrillator: Yes Other/Comment: Defibrillator. Cardiomyopathy - Pulmonary Hx Asthma: Yes (as a child) - HEENT Hx HEENT Disorder: Yes (eyeglasses) - Integumentary Other/Comment: small scar center of chest between breast from benign mass removal - Musculoskeletal/Rheumatological Hx Back Pain: Yes Hx Degenerative Joint Disease: Yes (mild) Hx Falls: No Other/Comment: disc narrowing L5 S1 - Gastrointestinal Hx Gall Bladder Disease: Yes Other/Comment: hernia - Genitourinary/Gynecological Other/Comment: r adnexal cyst 2.4 cm - Psychiatric Hx Psychophysiologic Disorder: No Hx Depression: No Hx Emotional Abuse: No Hx Physical Abuse: No Hx Substance Use: No - Surgical History Hx Cardiac Catheterization: Yes Hx Cholecystectomy: Yes Other/Comment: DEFIBRILLATOR. "mass removed from chest" - Anesthesia Hx Anesthesia: Yes Hx Anesthesia Reactions: No Hx Malignant Hyperthermia: No - Suicidal Assessment Feels Threatened In Home Enviroment: No Family/Social History - Physician Review Nursing Documentation Reviewed: Yes Family/Social History: Other (noncontributory) Smoking Status: Never Smoked Hx Alcohol Use: No Hx Substance Use: No Allergies/Home Meds Allergies/Adverse Reactions: Allergies No Known Allergies Allergy (Verified 03/20/15 22:14) Home Medications: Home Meds Medication Instructions Recorded Confirmed Aspirin [Aspir 81] 81 mg PO DAILY 03/05/13 03/18/17 Pantoprazole [Protonix] 40 mg PO DAILY 03/20/15 03/18/17 Furosemide [Lasix] 1 tab PO DAILY 03/18/17 03/18/17 Potassium Chloride [K-Dur 20 mEq 1 tab PO DAILY 03/18/17 03/18/17 ER Tab] Simvastatin [Zocor] 1 tab PO HS 03/18/17 03/18/17 Review of Systems - Review of Systems Constitutional: Normal. absent: Fatigue, Weight Change, Fevers, Night Sweats Eyes: Normal ENT: Rhinorrhea, Sinus Congestion, Other (left ear pain) Respiratory: Normal. absent: SOB, Cough, Sputum, Wheezing Cardiovascular: Normal. absent: Chest Pain, Palpitations Gastrointestinal: Normal. absent: Abdominal Pain, Nausea, Vomiting Genitourinary Female: Normal. absent: Dysuria, Frequency, Hematuria Musculoskeletal: Normal Skin: Normal Neurological: Normal. absent: Headache, Dizziness, Focal Weakness, Gait Changes , Speech Changes, Facial Droop, Disequilibrium, Seizure Endocrine: Normal Hemo/Lymphatic: Normal Psychiatric: Normal Physical Exam Vital Signs Temp Pulse Resp BP Pulse Ox 10/27/17 15:19 98.5 F 85 18 146/87 100 Temperature: Afebrile Blood Pressure: Normal Pulse: Regular Respiratory Rate: Normal Appearance: Positive for: Well-Appearing, Non-Toxic, Comfortable Pain Distress: None Mental Status: Positive for: Alert and Oriented X 3 - Systems Exam Head: Present: Atraumatic, Normocephalic Pupils: Present: PERRL Extroacular Muscles: Present: EOMI Conjunctiva: Present: Normal Mouth: Present: Moist Mucous Membranes Pharnyx: Present: Normal. No: ERYTHEMA, EXUDATE, TONSILS ENLARGED, Peritonsilar Swelling, Uvular Deviation, Muffled/Hoarse Voice, Strider, Soft Palate/Uvular Edema Nose (External): Present: Atraumatic Nose (Internal): Present: Rhinorrhea Neck: Present: Normal Range of Motion Respiratory/Chest: Present: Clear to Auscultation, Good Air Exchange. No: Respiratory Distress, Accessory Muscle Use, Wheezes, Retracting, Rhonchi, Tachypneic Cardiovascular: Present: Regular Rate and Rhythm, Normal S1, S2. No: Murmurs Abdomen: Present: Normal Bowel Sounds. No: Tenderness, Distention, Peritoneal Signs Back: Present: Normal Inspection. No: CVA Tenderness Upper Extremity: Present: Normal Inspection. No: Cyanosis, Edema Lower Extremity: Present: Normal Inspection. No: Edema Neurological: Present: GCS=15, CN II-XII Intact, Speech Normal, Motor Func Grossly Intact, Normal Sensory Function, Normal Cerebellar Funct, Gait Normal Skin: Present: Warm, Dry, Normal Color. No: Rashes Psychiatric: Present: Alert, Oriented x 3, Normal Insight, Normal Concentration Medical Decision Making ED Course and Treatment: 10/27/17 17:23 Re-evaluation. Patient feels better. Discussed results and plan with patient who expresses understanding. All questions answered and there is agreement with the plan to discharge home with instructions. Patient stable for discharge. Return if symptoms persist or worsen. Patient was recommended to f/u ENT if symptoms persist, or to return to ED if symptoms worsen. Re-evaluation Time: 17:24 Reassessment Condition: Re-examined, Improved - Medication Orders Current Medication Orders: Discontinued Medications Amoxicillin (Amoxil 500 Mg Cap) 500 mg PO STAT STA PRN Reason: Protocol Stop: 10/27/17 16:50 Last Admin: 10/27/17 17:10 Dose: 500 mg Disposition/Present on Arrival - Present on Arrival Any Indicators Present on Arrival: No History of DVT/PE: No History of Uncontrolled Diabetes: No Urinary Catheter: No History of Decub. Ulcer: No History Surgical Site Infection Following: None - Disposition Have Diagnosis and Disposition been Completed?: Yes Diagnosis: Acute sinusitis Disposition: HOME/ ROUTINE Disposition Time: 17:24 Patient Plan: Discharge Condition: GOOD Discharge Instructions (ExitCare): Sinusitis in Adults Additional Instructions: Call private doctor for follow up visit in 1-2 days. Take medication as instructed with food. Return to emergency if symptoms worsen Prescriptions: Amoxicillin [Amoxil 500 mg Cap] 500 mg PO TID #30 cap Referrals: Breann Ochoa, [Primary Care Provider] - Follow up with primary Forms: [employer] ([place]), WORK NOTE
== END 2017-10-27 17:55 | disposition home or self-care (01) ==
LOC: ED 15:19
DX: J01.90 Acute sinusitis, unspecified (principal); I10 Essential (primary) hypertension; E78.5 Hyperlipidemia, unspecified

== ENCOUNTER 2018-01-12 16:25 | Emergency (ER) | payer OTHER ==
[2018-01-12 16:38] VITALS: BMI 45.3
[2018-01-12 16:42] VITALS: TEMP 98.3
--- NOTE | 2018-01-12 17:09 | ED PDOC ---
Arrival/HPI - General Chief Complaint: Back Pain Time Seen by Provider: 01/12/18 16:43 Historian: Patient - History of Present Illness Narrative History of Present Illness (Text): 01/12/18 17:04 Pt is a 52 yr old female with PMH of DDD, cardiac defibrillator and HTN that presents to the ED with sudden, sharp left low back pain after lifting light objects at work a few days ago. Pt reports that the pain prevents her from sleeping comfortably and is worse while standing and better while sitting and resting. Denies shortness of breath, chest pain, nausea, vomiting or diarrhea or trauma, no change in bladder and bowel or any paraesthesia. Time/Duration: 24 hours Symptom Onset: Sudden Symptom Course: Unchanged Quality: Aching, Pressure Severity Level: Moderate Activities at Onset: Rest, Sleeping Context: Home Past Medical History - Provider Review Nursing Documentation Reviewed: Yes - Travel History Have you recently traveled outside [place] w/in the past 3 mons?: No - Infectious Disease Hx of Infectious Diseases: None - Cardiac Hx Cardiac Arrhythmia: Yes Hx Hypertension: Yes Hx Internal Defibrillator: Yes Other/Comment: Defibrillator. Cardiomyopathy - Pulmonary Hx Asthma: Yes (as a child) - HEENT Hx HEENT Disorder: Yes (eyeglasses) - Integumentary Other/Comment: small scar center of chest between breast from benign mass removal - Musculoskeletal/Rheumatological Hx Back Pain: Yes Hx Degenerative Joint Disease: Yes (mild) Hx Falls: No Other/Comment: disc narrowing L5 S1 - Gastrointestinal Hx Gall Bladder Disease: Yes Other/Comment: hernia - Genitourinary/Gynecological Other/Comment: r adnexal cyst 2.4 cm - Psychiatric Hx Psychophysiologic Disorder: No Hx Depression: No Hx Emotional Abuse: No Hx Physical Abuse: No Hx Substance Use: No - Surgical History Hx Cardiac Catheterization: Yes Hx Cholecystectomy: Yes Other/Comment: DEFIBRILLATOR. "mass removed from chest" - Anesthesia Hx Anesthesia: Yes Hx Anesthesia Reactions: No Hx Malignant Hyperthermia: No - Suicidal Assessment Feels Threatened In Home Enviroment: No Family/Social History - Physician Review Nursing Documentation Reviewed: Yes Family/Social History: Unknown Family HX Smoking Status: Never Smoked Hx Alcohol Use: No Hx Substance Use: No Allergies/Home Meds Allergies/Adverse Reactions: Allergies No Known Allergies Allergy (Verified 03/20/15 22:14) Home Medications: Home Meds Medication Instructions Recorded Confirmed Aspirin [Aspir 81] 81 mg PO DAILY 03/05/13 01/12/18 Pantoprazole [Protonix] 40 mg PO DAILY 03/20/15 01/12/18 Furosemide [Lasix] 1 tab PO DAILY 03/18/17 01/12/18 Potassium Chloride [K-Dur 20 mEq 1 tab PO DAILY 03/18/17 01/12/18 ER Tab] Simvastatin [Zocor] 1 tab PO HS 03/18/17 01/12/18 Review of Systems - Review of Systems Constitutional: Normal. absent: Fatigue, Fevers Eyes: Normal ENT: Normal Respiratory: Normal. absent: SOB Cardiovascular: Normal. absent: Chest Pain Gastrointestinal: Normal. absent: Abdominal Pain Genitourinary Female: Normal. absent: Dysuria, Frequency, Hematuria Musculoskeletal: Normal, Arthralgias (bilateral knees), Back Pain (left low back over ). absent: Neck Pain Skin: Normal Neurological: Normal. absent: Headache Endocrine: Normal. absent: Diaphoresis Hemo/Lymphatic: Normal Psychiatric: Normal. absent: Anxiety Physical Exam Vital Signs Reviewed: Yes Vital Signs Temp Pulse Resp BP Pulse Ox 01/12/18 18:18 98.3 F 66 18 134/88 99 01/12/18 16:25 98.3 F 81 16 121/84 97 Temperature: Afebrile Blood Pressure: Normal Pulse: Regular Respiratory Rate: Normal Appearance: Positive for: Well-Appearing, Non-Toxic, Comfortable Pain Distress: Moderate Mental Status: Positive for: Alert and Oriented X 3 - Systems Exam Head: Present: Atraumatic, Normocephalic Pupils: Present: PERRL Extroacular Muscles: Present: EOMI Conjunctiva: Present: Normal Mouth: Present: Moist Mucous Membranes Neck: Present: Normal Range of Motion Respiratory/Chest: Present: Clear to Auscultation, Good Air Exchange. No: Respiratory Distress, Accessory Muscle Use Cardiovascular: Present: Regular Rate and Rhythm, Normal S1, S2. No: Murmurs Abdomen: No: Tenderness, Distention, Peritoneal Signs Back: Present: Normal Inspection, Paraspinal Tenderness (left SI jt pain), Pain with Leg Raise (left side). No: CVA Tenderness, Midline Tenderness Upper Extremity: Present: Normal Inspection, Normal ROM, NORMAL PULSES. No: Cyanosis, Edema Lower Extremity: Present: Normal Inspection, NORMAL PULSES, Normal ROM. No: Edema, CALF TENDERNESS, Stanford's Sign, Tenderness, Swelling, Erythema Neurological: Present: GCS=15, CN II-XII Intact, Speech Normal, Motor Func Grossly Intact, Normal Sensory Function, Normal Cerebellar Funct, Gait Normal Skin: Present: Warm, Dry, Normal Color. No: Rashes Psychiatric: Present: Alert, Oriented x 3, Normal Insight, Normal Concentration Medical Decision Making ED Course and Treatment: 01/12/18 17:07 Impression Pt is a 52 yr old female with PMH of DDD, cardiac defibrillator and HTN that presents to the ED with sudden, sharp left low back pain after lifting light objects at work a few days. On exam, point tender to the si jt and surrounding paraspinal musculature; no CVA tenderness; SLR positive Left Plan UA, poc hcg, toradol, lidocaine patch assess and dispo Progress note 01/12/18 18:14 Pt doing well after receiving toradol and lidocaine patch she reports scheduled to go to PT this oming week for OA knees but recommended PT for LBP as well Would do well with SIJ injection with lidocaine and steroid mix Discussed seeing spine and pain management clinic if pain continues chronically VSS on dc - Lab Interpretations Lab Results: Lab Results 01/12/18 17:26: Urine Color Light yellow, Urine Appearance Clear, Urine pH 6.0, Ur Specific Hersey 1.010, Urine Protein Negative, Urine Glucose (UA) Negative, Urine Ketones Negative, Urine Blood Negative, Urine Nitrate Negative, Urine Bilirubin Negative, Urine Urobilinogen 0.2, Ur Leukocyte Esterase Negative - Medication Orders Current Medication Orders: Discontinued Medications Ketorolac Tromethamine (Toradol) 30 mg IM STAT STA Stop: 01/12/18 17:14 Last Admin: 01/12/18 17:26 Dose: 30 mg MAR Pain Assessment Document 01/12/18 17:26 LA (Rec: 01/12/18 17: DC [id number]) Pain Reassessment Is this a pain reassessment? No Sleep Is patient sleeping during reassessment? No Presence of Pain Presence of Pain Yes Pain Scale Used Pain Scale Used Numeric Location Left, Right or Bilateral Left Upper or Lower Lower Pain Location Body Site Back Description Intensity of Pain at present 5 Pain Behavior Guarding IM Administration Charges Document 01/12/18 17:26 LA (Rec: 01/12/18 17:26 LEÓN [id number]) Injection Site MAR Injection Site Right Gluteus Medius Charges for Administration # of IM Administrations 1 Lidocaine (Lidoderm) 1 ea TD STAT STA Stop: 01/12/18 17:13 Last Admin: 01/12/18 17:26 Dose: 1 ea MAR Transdermal Patch Site Document 01/12/18 17:26 LA (Rec: 01/12/18 17:26 LA [id number]) Transdermal Patch Site Transdermal Patch Site Left Lower Back Disposition/Present on Arrival - Present on Arrival Any Indicators Present on Arrival: Yes History of DVT/PE: No History of Uncontrolled Diabetes: No Urinary Catheter: No History of Decub. Ulcer: No History Surgical Site Infection Following: None - Disposition Have Diagnosis and Disposition been Completed?: Yes Diagnosis: Sacroiliac (ligament) sprain, Strain of muscle, fascia and tendon of lower back , initial encounter Disposition: HOME/ ROUTINE Disposition Time: 17:55 Patient Plan: Discharge Condition: GOOD Discharge Instructions (ExitCare): Back Exercises, Lumbar Muscle Strain (DC) Additional Instructions: PAO ARANA, thank you for letting us take care of you today. Your provider was LAUREN Zimmer and you were treated for LOW BACK PAIN. The emergency medical care you received today was directed at your acute symptoms. If you were prescribed any medication, please fill it and take as directed. It may take several days for your symptoms to resolve. Return to the Emergency Department if your symptoms worsen, do not improve, or if you have any other problems. We recommend that you follow up with a spine and pain management clinic if your low back pain continues; please the referral on your dishcarge document. You would benefit from low back exercises, joint injections and physical therapy. Remember to take the Flexeril 12 hrs before you need to wake up in the morning Please contact your doctor or call one of the physicians/clinics you have been referred to that are listed on the Patient Visit Information form that is included in your discharge packet. Bring any paperwork you were given at discharge with you along with any medications you are taking to your follow up visit. Our treatment cannot replace ongoing medical care by a primary care provider outside of the emergency department. [facility] your care today. If you had a blood, urine, or wound culture: It will take several days for the results, if any change in treatment is needed we will contact you. Prescriptions: Cyclobenzaprine [Flexeril] 5 mg PO TID 5 Days #15 tab Lidocaine 1 each TP DAILY 5 Days #5 adh..patch Naproxen 500 mg PO Q12 #10 tablet Referrals: Abhishek Shelley MD [Staff Provider] - Follow up with primary Forms: [employer] ([place]), WORK NOTE
[2018-01-12] MEDS ORDERED: Lidocaine 5% Patch TD STA (17:12)
[2018-01-12 17:40] LABS: URINE BILIRUBIN NEGATIVE (NEGATIVE); URINE BLOOD NEGATIVE (NEGATIVE); URINE GLUCOSE (UA) NEGATIVE (NEGATIVE); URINE LEUKOCYTE ESTERASE NEGATIVE Leu/uL (NEGATIVE); URINE PROTEIN NEGATIVE mg/dL (<30 mg/dL); URINE UROBILINOGEN 0.2 E.U./dL (<1 E.U./dL)
[2018-01-12 17:41] LABS: URINE APPEARANCE CLEAR (CLEAR); URINE COLOR LIGHT YELLOW (YELLOW)
[2018-01-12 18:19] VITALS: BP 134/88; PULSE 66; RESP 18; O2SAT 99
== END 2018-01-12 18:19 | disposition home or self-care (01) ==
LOC: ED 16:25
DX: S39.012A Strain of muscle, fascia and tendon of lower back, initial encounter (principal); S33.6XXA Sprain of sacroiliac joint, initial encounter; X50.0XXA Overexertion from strenuous movement or load, initial encounter; Y92.89 Other specified places as the place of occurrence of the external cause; Y99.8 Other external cause status
CPT/HCPCS: 81003; 96372; 99283; J1885